=== PATIENT | female | born 1965 | race Caucasian/White ===

== ENCOUNTER → 2019-11-22 15:02 | Outpatient (CLI) | payer MEDICARE ==
[2019-11-22 16:30] LABS: LDL-HDL RATIO 3.4 ratio (1.5-3.5)
== END | disposition home or self-care (01) ==
LOC: D.LABREF 15:02
PROVIDERS: ATTEND Family Medicine
DX: E11.65 Type 2 diabetes mellitus with hyperglycemia (principal); J96.01 Acute respiratory failure with hypoxia